=== PATIENT | female | born 1995 | race African-American/Black ===

== ENCOUNTER 2019-04-12 13:43 | Emergency (ER) | payer OTHER ==
[~2019-04-12] VITALS: Ht 172.7 cm; Wt 104.3 kg
[~2019-04-12 13:43] MED LIST: FLEXERIL; KEFLEX500 MG PO; NAPROSYN250 MG; NOHOMEMEDICATIONS; TRAMADOL 50 MG50 MG; TRINATE TABLET1 TAB; ZOFRAN ODT4 MG PO
[2019-04-12] MEDS ORDERED: IBUPROFEN 800800 MG PO (14:38)
[2019-04-12 14:55] VITALS: BP 148/76
== END 2019-04-12 14:56 | disposition home or self-care (01) ==
LOC: M.ERS 13:43
DX: S93.491A Sprain of other ligament of right ankle, initial encounter (principal); M19.90 Unspecified osteoarthritis, unspecified site; W10.8XXA Fall (on) (from) other stairs and steps, initial encounter; Y93.89 Activity, other specified; Y92.89 Other specified places as the place of occurrence of the external cause; Y99.8 Other external cause status